=== PATIENT | male | born 1940 | race Caucasian/White ===

== ENCOUNTER 2016-12-16 00:45 | Observation (INO) | payer MEDICARE ==
[~2016-12-16] VITALS: Ht 177.8 cm; Wt 89.1 kg
[2016-12-16] VITALS (7 sets, daily range): BP systolic 119–157; BP diastolic 74–91; PULSE 50–89; RESP 16–18; O2SAT 94–98
[~2016-12-16 00:45] MED LIST: CLOP75TA28 PO; KEN1O TOP; LEVE500T3 PO; LEVOTHROID PO; SIMV20TA4 PO; TADA20TA PO; ZOLP5TAB6 PO
--- NOTE | 2016-12-16 00:54 | ED.REPORT ---
HPI-Neurologic Deficit Date of Service Dec 16, 2016 ED Provider: Jelly Bell MD Patient is a 76 year old male and a history of left frontal meningioma s/p resection in 2010, seizure disorder, hypertension, hyperlipidemia, and prior TIA 2x who presents to the ED after he developed numbness on the right side of his body this evening. The patient states that his symptoms started with right arm numbness at 11:30pm yesterday evening, lasting 12-15 minutes. His right left then became numb around midnight, also lasting for 12-15 minutes. The patient decided to seek medical care at this time, with his right arm again going numb enroute to the ED. Patient states that all of his symptoms are resolved on arrival to the ED. Patient reports a mild associated headache. The patient states that his current symptoms are similar to when he previously had a TIA in June and December. Patient denies slurred speech, facial droop, difficultly speaking, or vision changes. His observed him during these episodes and can confirm this information. Nursing Notes Stated Complaint: POSS TIA Nursing Notes Reviewed: Yes Allergies: Uncoded Allergies: POLLEN (Allergy, Unknown, 09/01/14) Scheduled ([Levothroid]) 100 MCG PO DAILY Clopidogrel (Clopidogrel) 75 Mg Tablet 75 MG PO DAILY Levetiracetam (Levetiracetam) 500 Mg Tablet 1,500 MG PO BID Simvastatin (Simvastatin) 20 Mg Tablet 20 MG PO HS Tadalafil (Cialis) 20 Mg Tablet 10 MG PO PRN As directed by physician. Triamcinolone Acet (Triamcinolone Acetonide Ointment) 1 Applic/0.25 Gm Oint 1 APPLIC TOP BID Scheduled PRN Zolpidem (Zolpidem) 5 Mg Tablet 5 MG PO HS PRN PRN For Insomnia General Time Seen by Provider: 01:04 Chief Complaint Numbness arm... (Right), Numbness leg... (Right) Hx Obtained From: Patient Arrived By: Walk-in Sudden in Onset?: No Onset Occurred: 1 - 4 hours ago Symptom Duration: Intermittent Severity: Current: No pain currently Severity: Maximum: No pain Recent Healthcare: No recent doctor visit, No recent hospitalization Similar Sx Previous: Yes Past Medical History Past Medical History Notes: PCP: Dr. Durbin Past Medical History Hypothyroidism Prior TIA in Jun 2016 and January 2016 Left frontal meningioma s/p removal and radiation therapy in 2011 Reports: Hyperlipidemia, Hypertension Reports: Seizure disorder Past Surgical History Left knee repair 2000 Left frontal meningioma removal 2011 Smoking History Never Smoker Social History Alcohol Use: "Social" Other Social History: Good social support, , Local resident Ambulatory Status Independent Review of Systems Eyes: Denies: Blurred bilateral, Visual loss bilateral Neurologic: Reports: Headache, Numbness, Denies: Slurred speech, Unable to speak, Vision change Complete sys rev & neg: except as marked. Physical Exam Initial Vital Signs Vital Signs (First) Date Time Temp Pulse Resp B/P Pulse Ox O2 Delivery O2 Flow Rate FiO2 12/16/16 00:54 36.1 60 17 157/91 98 Room Air Initial VS: Reviewed ENT: Conjunctiva normal, No scleral icterus Neck: Supple, Full range of motion Abdomen / GI: Soft, Non-tender, No distention Extremities: Vascular intact, Neuro intact, No swelling Skin: Warm, Dry, No cyanosis Psychiatric: Mood/affect normal, Behavior normal, Normal thought content General/Constitutional: Awake, Alert, No acute distress Head / Eyes: Normocephalic, PERRL, EOMI Respiratory / Chest: Breath sounds NL, Breath sounds = bilat, No respiratory distress, No rales, No rhonchi, No wheezing Cardiovascular: Heart rate NL, Regular rhythm, Heart sounds NL, No murmurs Neurologic: Oriented X3, Speech NL, No motor deficits, No sensory deficits, CN II - XII intact Focal Weakness: Negative: Pronator drift L, Pronator drift R Cerebellar Dysfunction: Negative: Finger-nose abnl, Heel-oro abnl Interpretation & Diagnostics Lab Results Interpretation Result Diagram: 12/16/16 0109 12/16/16 010 Test 12/16/16 01:09 White Blood Count 6.3th/mm3 (3.8-10.1) Red Blood Count 4.49mil/mm3 (4.40-5.80) Hemoglobin 15.1g/dL (13.8-17.2) Hematocrit 41.7% (41.0-50.0) Mean Corpuscular Volume 92.9fL (81-100) Mean Corpuscular Hemoglobin 33.6pg (27.0-35.0) Mean Corpuscular Hemoglobin Concent 36.2% (32.0-37.0) Red Cell Distribution Width 11.9% (12.3-15.4) Platelet Count 123bil/L (150-400) Neutrophils (%) (Auto) 65.9% (40-74) Lymphocytes (%) (Auto) 20.4% (14-46) Monocytes (%) (Auto) 12.0% (4-12) Eosinophils (%) (Auto) 1.3% (0-5) Basophils (%) (Auto) 0.2% (0-3) Prothrombin Time 11.1sec (8.1-12.5) Prothromb Time International Ratio 1.04ratio Activated Partial Thromboplast Time 26.9sec (22.8-33.0) Sodium Level 141mEq/L (134-144) Potassium Level 3.7mEq/L (3.5-5.2) Chloride Level 104mEq/L (97-108) Carbon Dioxide Level 23mmol/L (18-29) Blood Urea Nitrogen 15mg/dL (8-27) Creatinine 0.85mg/dL (0.76-1.27) Estimat Glomerular Filtration Rate 94mL/min (>59) Glucose Level 104mg/dL (60-99) Calcium Level 9.0mg/dL (8.5-10.1) Total Bilirubin 0.6mg/dL (0.0-1.2) Aspartate Amino Transf (AST/SGOT) 21U/L (0-50) Alanine Aminotransferase (ALT/SGPT) 15U/L (0-44) Alkaline Phosphatase 66U/L (25-160) Troponin T 0.010ug/L (0.0-0.011) Total Protein 6.7g/dL (6.4-8.4) Albumin 4.4g/dL (3.4-5.0) Hold Smiley Top Tube Received (Received) ECG Interpretation ECG Interpretation: Sinus bradycardia, Rate [address] elevation T wave inversions in lead 3 and AVR unchanged from prior Time: 01:30 Interpreted by: ED physician CT Head Interpretation CONCLUSION: Cortical atrophy, 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 Critical Test acknowledged at 12/16/2016 1:18:09 AM PDT. Verbal report given to Dr. Bell at 12/16/2016 1:18:11 AM PDT. She states that the patient had a meningioma resected and was treated with radiation therapy. The patient's symptoms have since resolved. She states there is a previous study for comparison minimal try to get it to me for comparison. I would be concerned that the meningioma has recurred. Low attenuation within the left brain though could represent some vasogenic edema or could be the result of the previous radiation therapy. Study: Head CT no contrast Interpretation / Wet Read by: Interpret - Radiologist, Discussed w radiologist Re-Eval/Medical Decision Med Decision/Clinical Course 76-year-old male with past medical history of meningioma, hypertension, high cholesterol, TIA here with numbness to right upper and right lower extremity 2 which is now resolved. Differential diagnosis includes but is not limited to ischemic versus hemorrhagic stroke versus recurrent meningioma versus electrolyte abnormality. CBC and CMP are unremarkable. EKG is unremarkable. CT head shows recurrence of meningioma which is unchanged from CT scan in June. Patient has been admitted by the hospitalist for TIA workup. He is aware and amenable to plan. Source of Hx: Old records Re-Evaluation/Progress #1: Time of Eval: 01:38 Patient Status: Condition resolved Re-Evaluation/Progress Note: Rechecked the patient. Discussed his CT findings with the patient. It appears as if there is a recurrance of his meningioma on CT scan. He is not aware of this, but someone did review his imaging from June of this year. The patient states that he is followed by a neurologist in [place], but was previously seen at [facility]. Patient will be admitted to the hospital for further care. Patient understands and agrees with this plan. All questions were addressed. Re-Evaluation/Progress #2: Time of Eval: 03:02 Re-Evaluation/Progress Note: Rechecked the patient. He was informed that he has been accepted for admission to the hospital. Consultation : Referral / Consult Name: Maria Guadalupe Blanca DO Consulted With: Hospitalist Call Returned at: 02:59 Admitting Representative: Will see patient, Agrees with eval, Agrees with plan, Accepts admit Note: Spoke with Dr. Montgomery, hospitalist, who agrees to accept admit. Counseled Regarding: Diagnosis, Lab results, Need for admission Discharge & Departure Impression: Primary Impression: TIA (transient ischemic attack) Transient cerebral ischemia type: unspecified Qualified Code: G45.9 - Transient cerebral ischemic attack, unspecified Disposition: ADMITTED TO HOSPITAL Discharge Condition All VS Reviewed: Yes Condition: Stable Referrals: Bianka Durbin MD (PCP) Jamesibnohemy Attestation Portions of this note were transcribed by Elli Goodrich. I, Dr. Bell personally performed the history, physical exam and medical decision-making; I reviewed and confirmed the accuracy of the information in the transcribed note. Signed by: Larry Loja, 12/16/2016 0303 copies to: Bianka Durbin MD, Rebecca A MD Dec 16, 2016 00:54 Elli Goodrich Dec 16, 2016 01:12
[2016-12-16 01:26] LABS: BASOPHILS % (AUTO) 0.2 % (0-3); EOSINOPHILS % (AUTO) 1.3 % (0-5); Mean Corpuscular Hemoglobin 33.6 pg (27.0-35.0); Mean Corpuscular Volume 92.9 fL (81-100); NEUTROPHILS % (AUTO) 65.9 % (40-74); Platelet Count 123 bil/L (150-400)
[2016-12-16 01:45] LABS: INR 1.04 ratio
[2016-12-16 02:03] LABS: TROPONIN T 0.01 ug/L (0.0-0.011)
[2016-12-16] MEDS ORDERED: Polyethylene Glycol (PEG) 17 Gm Powder PO PRN (03:20)
[2016-12-16] MEDS ORDERED: hydrALAZINE 20 mg/mL Inj IVPUSH PRN (03:20)
[2016-12-16] MEDS ORDERED: Ondansetron 2 mg/mL 2 mL Inj IV PRN (03:20)
[2016-12-16] MEDS ORDERED: Ondansetron 2 mg/mL 2 mL Inj IVPUSH PRN (03:25)
[2016-12-16] MEDS ORDERED: Alum-Mag Hydrox-Simeth 30 mL Suspension PO PRN (03:25)
[2016-12-16 04:48] LABS: APPEARANCE,URINE CLEAR (CLEAR,HAZY); COLOR,URINE YELLOW (YELLOW); OCCULT BLOOD,URINE TRACE (NEGATIVE); UROBILINOGEN,URINE NORMAL (NORMAL)
--- NOTE | 2016-12-16 06:12 | PCM.HPMED ---
Subjective Date of Service Dec 16, 2016 Primary Provider: Admitting Physician: Maria Guadalupe Blanca DO Primary Care Physician: Bianka Durbin MD Attending Physician: Maria Guadalupe Blanca DO Admit Status: From the Emergency Department Chief Complaint: Right arm and leg numbness History of Present Illness: 76-year-old male with past medical history of meningioma resection, seizures, TIAs presents with an episode of right upper and lower extremity numbness. At approximately 11:30 PM on 12/15/2016 patient developed intense numbness in his right arm this sensation when he touched it was decreased and also he suddenly it was not there. This episode lasted 10-15 minutes he was able to walk downstairs in that time and talk with his . He then fell asleep and woke up an hour later with some right leg numbness. He was able to walk but was stumbling some, he was also having trouble standing. At that time patient decided it was reasonable to come to the emergency department. His brought him here in the car he had some additional right arm numbness however upon arrival he felt normal again and has not had return of this sensation. Patient reports otherwise feeling well, he has had no changes in his routine recently. He walks 3.5 miles every other day. He did notice a leg cramp on the right side a couple nights ago however this resolved and has not returned. He does report a mild headache and now however this did not start prior to his symptoms. He reports no vision changes no nausea, vomiting, fever, chills. Patient had similar events in June and January 2016. He is followed by neurologist Dr. Carr in [place]. Who he last saw after his admission in June. Patient has not been taking aspirin since last admission, he also has not had an EEG In the emergency department CT brain shows no changes from imaging done in June. Laboratory evaluation unremarkable. Review of Systems: A comprehensive review of systems was conducted with the patient and found to be negative except as above in the History of Present Illness. Allergies Uncoded Allergies: POLLEN (Allergy, Unknown, 09/01/14) Home Medications 1. Plavix 75 mg by mouth daily 2. Keppra 1500 mg by mouth twice a day 3. Tadalafil 10 mg by mouth when necessary as directed 4. Triamcinolone acetonide ointment apply topically twice a day 5. Zolpidem 5 mg by mouth daily at bedtime when necessary insomnia 6. Levothyroxine 100 g by mouth daily PMH Left frontal meningioma status post removal and radiation therapy in 2010 Seizure 2010 Atrial flutter status post ablation Hyperlipidemia Thyroid nodule with hypothyroidism related TIA June and January 2016 Surgical History Resection of left frontal meningioma 2010 Left knee repair 2000 Cardiac ablation for atrial flutter Family History Mother with cancer and CHF History of diabetes Social History Hx Alcohol Use: Yes (Martini 1-2 daily) Alcoholic Drinks Per Day: 2 Hx Substance Use: No Hx Tobacco Use: No Smoking Status: Former Smoker, Never Smoker Years of Smokin Living Arrangement: with Family Exam Vital Signs Vital Sign - Last Date Time Temp Pulse Resp B/P Pulse Ox O2 Delivery O2 Flow Rate FiO2 12/16/16 04:02 36.7 55 18 138/88 97 Room Air Exam General: No acute distress, well-developed, well-nourished, appropriately interactive HEENT: Normocephalic, atraumatic. External ears without defect. Pupils equal, round, and reactive to light and accommodation. Anicteric sclerae, moist conjunctivae, and no lid lag. Oropharynx free of erythema and cobble stoning with moist mucosa. Neck: Supple with full range of motion. No jugular venous distension. No bruits. No lymphadenopathy or thyromegaly. Cardiovascular: Regular rate and rhythm with no murmurs, rubs, or gallops appreciated Pulmonary: Clear to auscultation bilaterally with no crackles, wheezes, or rhonchi. Normal respiratory effort with no use of accessory muscles. Abdomen: Bowel tones present. Soft, nontender, nondistended. No hepatosplenomegaly or masses appreciated. Extremities: No clubbing, cyanosis, edema, or lymphadenopathy appreciated. Skin: Normal temperature, turgor, and texture; no rash, ulcers, or subcutaneous nodules appreciated. Neurological: Cranial nerves grossly intact. Normal muscle strength, tone, and bulk. No gait impairment. Patient able to ambulate independently, Psychiatric: Normal mood and affect. Alert and oriented to person, place, and time. Lab and Diagnostics Result Diagram: 12/16/1610812/16/16108 Assessment & Plan 76-year-old male with past medical history of meningioma resection, seizures, TIAs presents with an episode of right upper and lower extremity numbness that had resolved upon presentation to the emergency department. Patient has 2 similar episodes in June and January 2016 1. Possible transient ischemic attack, present on admission, resolved - Patient had right-sided upper and lower extremity numbness last known normal 11 PM 12/15/2016 - ABCD2 score predicts patient is low risk with a 2 day stroke risk of 1.0% and a 90 day stroke risk of 3.1% - CT head shows evidence of left frontal meningioma resection, radiation, and regrowth no change since June 2016, pending final read - Patient had no symptoms of dysphasia or dysarthria, nursing swallow eval past - Echocardiogram ordered - Hemoglobin A1c, fasting lipid profile ordered - Medical management with Plavix, simvastatin --- initiating ASA 325mg daily in addition to plavix - MR stroke protocol ordered for the morning - Nursing stroke education - Monitor patient on telemetry - Allow for permissive hypertension - Physical therapy evaluation 2. History of seizures, present on admission, chronic - Continue Keppra - Recommend day hospitalist contact neurologist Dr. Carr in [place] for close follow-up and possible recommendations 3. Hypothyroidism, present on admission, chronic - Continue levothyroxine 100 g by mouth daily Acetaminophen for mild pain when necessary. Bowel regimen Senna and MiraLAX PRN. Zofran when necessary for nausea and vomiting. DVT prophylaxis with sub cutaneous Lovenox Patient is admitted under observation status with expected length of stay less than 2 midnights due to severity of presenting symptoms, risk of adverse event, and complexity of treatment plan. Pain Evaluation: Adequate Pain Control GI Prophylaxis: Not indicated VTE Prophylaxis: Sub-Q Enoxaparin Resuscitation Status: CPR: Attempt Resuscitation Attending Statement The patient was seen and examined together with house staff on 12/16/16 and I agree with the history, exam and plan as outlined in the note above. Roma Banerjee DO Dec 16, 2016 04:06 Maria Guadalupe Blanca DO Dec 16, 2016 06:31
--- NOTE | 2016-12-16 06:17 | NUR ---
Admit Pt arrived on unit #[id number] via stretcher from ED with all personal belongings. Able to transfer self to bed. VSS. Neuro's WNL. Oriented to unit, hospital policy and call light. Bed locked, low position. Allergy sticker placed on armband. Home medication list completed per patient interview. Slip resistant socks and SBA for safety. Call light within reach, using appropriately. Pleasant and cooperative with care.
[2016-12-16] MEDS ORDERED: levETIRAcetam 500 mg Tablet PO SCH (08:30)
--- NOTE | 2016-12-16 09:58 | DRSVH ---
PROCEDURE: CT BRAIN (TPA) ([id number]) INDICATIONS: slurred speech TECHNIQUE: Noncontrast 4.5 mm thick angled axial sections acquired from the foramen magnum to the vertex, with c oronal reformats. COMPARISON: [facility], CT, BRAIN W CONTRAST, 08/07/2011, 17:00. [facility] , CT, BRAIN W/O CONTRAST, 04/09/2012, 13:36. [facility], MR, BRAIN W&W/O CONTRAST, 012, 15:18. [facility], CT, BRAIN (TPA), 06/26/2016, 14:14. FINDINGS: Image quality: Excellent. CSF spaces: Basal cisterns are patent. No extra-axial fluid collections. The ventricles are symmet meggan in size and shape. Brain: No intracranial bleeds. There is cerebral volume loss for age, with resultant ventricular an d sulcal prominence. There are periventricular and deep white matter chronic small vessel ischemic c hanges. There is intracranial internal carotid artery atherosclerosis. Postsurgical changes are pre sent within the left para-midline section of the vertex. In addition, within this region there is an isodense mass like focus present. It is noted in the clinical history that the patient had a meningio ma resection within this region was treated with radiation therapy in 2010. Skull and face: Calvarium and visualized facial bones appear intact, without suspicious lesions. Sinuses: Visualized sinuses and mastoids are clear. IMPRESSION: 1. No acute intracranial process. 2. Isodense focus within the left frontal para midline position at the level of the vertex as describ ed above. This is the site of previous meningioma resection. Overall appearance is suggestive of pote ntial tumor recurrence versus radiation change. MRI with and without contrast is recommended for senia tional evaluation and comparison to postoperative MRI on 04/09/12. This study fulfills neurological imaging criteria for inclusion or exclusion of acute stroke therapie s based on available published neurological guidelines. Dictated by: Myriam Teague M.D. on 12/16/2016 at 9:46 Approved by: Myriam Teague M.D. on 12/16/2016 at 9:56
--- NOTE | 2016-12-16 11:23 | NUR ---
Evaluation completed. Please go to "Notes" then click on "Assessments and Notes" (bottom left corner of screen). Then select appropriate discipline tab on top of screen.
--- NOTE | 2016-12-16 13:29 | NUR ---
Pt. screened. Discussed with pt. his current functional state and observed tasks. No charge. DC OT.
--- NOTE | 2016-12-16 14:30 | DRSVH ---
PROCEDURE: MRI STROKE PROTOCOL ([id number]) Pre- and post-contrast brain MRI, non-contrast brain MR angiogram, pre- and postcontrast neck MR nelson ogram INDICATIONS: TIA, meningioma resected 2010 TECHNIQUE: Brain: Noncontrast axial T1 spin echo, axial T2 fast spin echo, sagittal and axial FLAIR, coronal T2 fast spin echo, axial gradient echo, axial diffusion and ADC through the brain. After the administr ation of contrast, axial 3D VIBE of the cranial vasculature and brain. Brain MRA: Non-contrast 3-D time of flight MR angiogram, with multiple chcvtin-hcbetgedb-ixwmiagxif (MIP) reformats performed. Neck MRA: Axial and sagittal TruFISP through the neck. Coronal dynamic MR angiogram during administ ration of contrast in the arterial and venous phases, with 3-dimenstional pjefvwc-mkkpyoqoj-yqlxmvhyi n (MIP) reformats constructed from subtraction images. COMPARISON: [facility], CT, BRAIN W/O CONTRAST, 07/22/2011, 23:08. [facility], B[facility]AST, 08/07/2011, 17:00. [facility], CT, BRAIN W/O CONTRAST, 04/09/20 12, 13:36. [facility], MR, BRAIN W&W/O CONTRAST, 04/09/2012, 15:18. FINDINGS: Image quality: Excellent. BRAIN: CSF spaces: Ventricles are normal in size and shape. Basal cisterns are patent. No extra-axial flu id collections. Brain: Left parietal parafalcine enhancing extra-axial mass is again noted. The mass has increased in size in the interval since prior MRI obtained 04/09/2012 measuring approximately 5.6 x 2.8 x 2.5 cm. T he lesion invades the superior sagittal sinus and crosses midline to the right parasagittal parietal convexity. Lesion has mass effect on the left parietal lobe. There is increased T2 signal within the left frontal and parietal convexity subcortical white matter compatible with vasogenic edema. Scatter ed punctate foci of increased T2 signal noted in the periventricular and subcortical white matter tra cts compatible with mild chronic microvascular ischemic changes. There is absence of flow void and e nhancement in the superior sagittal sinus anterior to the parietal extra-axial mass. Del Valle-white matte r interface is normal. Diffusion weighted images show no acute ischemic insults. Brainstem appears normal. Normal central cerebral arterial flow voids are present. Skull and face: Postsurgical changes compatible with left frontal-parietal craniotomy for meningioma resection are again noted. Calvarial marrow signal is normal. Orbits appear normal. Sinuses: Mucous retention cysts versus polyps in the maxillary sinuses are stable compared to prior e xamination. mastoids are clear. BRAIN MR ANGIOGRAM: Anterior circulation: Intracranial internal carotid arteries are normal in size and enhancement. Th e flow within the paired anterior cerebral arteries is normal and symmetric. The flow within the mid dle cerebral arteries is normal and symmetric. The anterior communicating artery is seen. No stenos es, occlusions, or aneurysms. Posterior circulation: The visualized portions of the vertebral arteries demonstrate normal caliber, and join to form a normal appearing basilar artery. The flow within the posterior cerebral arteries is normal and symmetric. No stenoses, occlusions, or aneurysms. NECK MR ANGIOGRAM: Carotids: Great vessels demonstrate a conventional anatomy as they arise from the aortic arch. The origins of the common carotid arteries appear patent. The calibers and courses of both common caroti d arteries are normal. The bifurcation regions appear normal bilaterally. The internal carotid mg rachell demonstrate normal course and caliber. Posterior circulation: The origins of the vertebral arteries appear patent. More superior portions of both vertebral arteries demonstrate normal course and caliber, and join to form a normal appearing basilar artery. Miscellaneous: Subclavian arteries appear patent. Pre-contrast images through the neck show no soft tissue abnormalities. IMPRESSION: BRAIN MRI: 1. No areas of acute infarction. 2. Left parietal parafalcine enhancing extra-axial mass has increased in size. The lesion now invades the superior sagittal sinus and extends across midline to the right parafalcine parietal convexity. Lesion has imaging characteristics compatible with residual/recurrent meningioma. 3. Left parafalcine meningioma having a mass effect on adjacent left frontal parenchyma with associat ed left frontal and left parietal vasogenic edema. 4. Absence of flow-void and enhancement in the superior sagittal sinus anterior to left parafalcine m eningioma compatible with occlusion. BRAIN MR ANGIOGRAM: Negative MR angiogram head. NECK MR ANGIOGRAM: Negative MR angiogram neck. Findings discussed with Janie Zhong medical resident covering for Roma Banerjee on 12/16/16 at 1427 hr s. The estimate of stenosis included in the report of the imaging study was calculated using the NASCET method Dictated by: Sally Lujan MD, PhD on 12/16/2016 at 14:07 Approved by: Sally Lujan MD, PhD on 12/16/2016 at 14:29
--- NOTE | 2016-12-16 15:48 | PCM.DIMED ---
Venecia Cramer DO 12/16/16 1548: Discharge Instructions Date of Service Dec 16, 2016 Dates of Hospitalization Dec 16, 2016 at 02:42 Discharge Diagnosis Discharge Diagnosis Meningioma recurrence. History of seizures, present on admission, chronic Hypothyroidism, present on admission, chronic Test Results BRAIN: CSF spaces: Ventricles are normal in size and shape. Basal cisterns are patent. No extra-axial fluid collections. Brain: Left parietal parafalcine enhancing extra-axial mass is again noted. The mass has increased in size in the interval since prior MRI obtained 04/09/2012 measuring approximately 5.6 x 2.8 x 2.5 cm. The lesion invades the superior sagittal sinus and crosses midline to the right parasagittal parietal convexity. Lesion has mass effect on the left parietal lobe. There is increased T2 signal within the left frontal and parietal convexity subcortical white matter compatible with vasogenic edema. Scattered punctate foci of increased T2 signal noted in the periventricular and subcortical white matter tracts compatible with mild chronic microvascular ischemic changes. There is absence of flow void and enhancement in the superior sagittal sinus anterior to the parietal extra-axial mass. [place] Valle-white matter interface is normal. Diffusion weighted images show no acute ischemic insults. Brainstem appears normal. Normal central cerebral arterial flow voids are present. Skull and face: Postsurgical changes compatible with left frontal-parietal craniotomy for meningioma resection are again noted. Calvarial marrow signal is normal. Orbits appear normal. Sinuses: Mucous retention cysts versus polyps in the maxillary sinuses are stable compared to prior examination. mastoids are clear. BRAIN MRI: 1. No areas of acute infarction. 2. Left parietal parafalcine enhancing extra-axial mass has increased in size. The lesion now invades the superior sagittal sinus and extends across midline to the right parafalcine parietal convexity. Lesion has imaging characteristics compatible with residual/recurrent meningioma. 3. Left parafalcine meningioma having a mass effect on adjacent left frontal parenchyma with associated left frontal and left parietal vasogenic edema. 4. Absence of flow-void and enhancement in the superior sagittal sinus anterior to left parafalcine meningioma compatible with occlusion. BRAIN MR ANGIOGRAM: Negative MR angiogram head. NECK MR ANGIOGRAM: Negative MR angiogram neck. Diet No restrictions Activity Limited until seen by PCP Call your provider Weakness (unilateral), Other (Worsening or changing symptoms) Patient Instructions Please follow up with your PCP early this week. You will need a referral to a neurosurgeon as [facility]. Your PCP can do this referral. I have attached the pertinent results of your MRI so your PCP can be aware of the findings. Your case as discussed with the neurologist on at [facility] and she stated that you will need surgery but within the next month. It is not emergent. If you develop seizures through your Keppra please immediately come into the ED. If you notice a change in your weakness or numbness or worsening symptoms please come into the ED. Follow-up Provider: Bianka Durbin MD Follow-up with PCP in: 1 week Diaz Evans MD 12/16/16 2331: Discharge Instructions Attending's Statement The patient was seen and examined together with Dr. Cramer on 12/16 and I agree with the history, exam and plan as outlined in the note above Venecia Cramer DO Dec 16, 2016 15:48 Diaz Evans MD Dec 16, 2016 23:31
--- NOTE | 2016-12-16 17:11 | NUR ---
Discharge Pt d/c home with at 1650, ambulated off unit by primary RN. Pt denied pain. IV d/c prior to leaving. Discharge info discussed with pt and . Pt denied having questions. All personal belongings left with pt. VSS.
--- NOTE | 2016-12-16 19:04 | PCM.DC.MED ---
Discharge Summary Date of Service Dec 16, 2016 Dates of Hospitalization Date of Hospital Admission Dec 16, 2016 at 02:42 Date of Discharge: Dec 16, 2016 Providers: Admitting Physician: Maria Guadalupe Blanca DO Primary Care Physician: Bianka Durbin MD Attending Physician: Maria Guadalupe Blanca DO Diagnosis at Time of Discharge Diagnosis at Time of Discharge Meningioma recurrence. History of seizures, present on admission, chronic Hypothyroidism, present on admission, chronic Procedures XRay, CTs & MRIs PROCEDURE: MRI STROKE PROTOCOL ([id number]) Pre- and post-contrast brain MRI, non-contrast brain MR angiogram, pre- and postcontrast neck MR angiogram IMPRESSION: BRAIN MRI: 1. No areas of acute infarction. 2. Left parietal parafalcine enhancing extra-axial mass has increased in size. The lesion now invades the superior sagittal sinus and extends across midline to the right parafalcine parietal convexity. Lesion has imaging characteristics compatible with residual/recurrent meningioma. 3. Left parafalcine meningioma having a mass effect on adjacent left frontal parenchyma with associated left frontal and left parietal vasogenic edema. 4. Absence of flow-void and enhancement in the superior sagittal sinus anterior to left parafalcine meningioma compatible with occlusion. BRAIN MR ANGIOGRAM: Negative MR angiogram head. NECK MR ANGIOGRAM: Negative MR angiogram neck. Findings discussed with Janie Zhong medical technologist prn covering for Roma Banerjee on 12/16/16 at 1427 hrs. The estimate of stenosis included in the report of the imaging study was calculated using the NASCET method Dictated by: Sally Lujan MD, PhD on 12/16/2016 at 14:07 Approved by: Sally Lujan MD, PhD on 12/16/2016 at 14:29 PROCEDURE: CT BRAIN (TPA) ([id number]) IMPRESSION: 1. No acute intracranial process. 2. Isodense focus within the left frontal para midline position at the level of the vertex as described above. This is the site of previous meningioma resection. Overall appearance is suggestive of potential tumor recurrence versus radiation change. MRI with and without contrast is recommended for additional evaluation and comparison to postoperative MRI on 04/09/12. This study fulfills neurological imaging criteria for inclusion or exclusion of acute stroke therapies based on available published neurological guidelines. Dictated by: Myriam Teague M.D. on 12/16/2016 at 9:[address] Banerjee's H and P: "76-year-old male with past medical history of meningioma resection, seizures, TIAs presents with an episode of right upper and lower extremity numbness. At approximately 11:30 PM on 12/15/2016 patient developed intense numbness in his right arm this sensation when he touched it was decreased and also he suddenly it was not there. This episode lasted 10-15 minutes he was able to walk downstairs in that time and talk with his . He then fell asleep and woke up an hour later with some right leg numbness. He was able to walk but was stumbling some, he was also having trouble standing. At that time patient decided it was reasonable to come to the emergency department. His brought him here in the car he had some additional right arm numbness however upon arrival he felt normal again and has not had return of this sensation. Patient reports otherwise feeling well, he has had no changes in his routine recently. He walks 3.5 miles every other day. He did notice a leg cramp on the right side a couple nights ago however this resolved and has not returned. He does report a mild headache and now however this did not start prior to his symptoms. He reports no vision changes no nausea, vomiting, fever, chills. Patient had similar events in June and January 2016. He is followed by neurologist Dr. Carr in [place]. Who he last saw after his admission in June. Patient has not been taking aspirin since last admission, he also has not had an EEG In the emergency department CT brain shows no changes from imaging done in June. Laboratory evaluation unremarkable." Hospital Course 76-year-old male with past medical history of meningioma resection, seizures, TIAs presents with an episode of right upper and lower extremity numbness that had resolved upon presentation to the emergency department. Patient has 2 similar episodes in June and January 2016 1. Meningioma recurrence, present on admission, chronic - Patient had right-sided upper and lower extremity numbness last known normal 11 PM 12/15/2016 - MRI showed evidence of recurrence of meningioma with mass effect. Discussed case with [facility] neurology who reviewed imaging. Per their recommendation the patient does need to proceed to surgery but within in the next 3-4 weeks and it can be done outpatient. There is no indication for emergent surgery as the patient has not had seizures through his Keppra. - Patient had no symptoms of dysphasia or dysarthria, nursing swallow eval passed. - Hemoglobin A1c, fasting lipid profile ordered - Physical therapy evaluation ordered 2. History of seizures, present on admission, chronic - Continued Keppra 3. Hypothyroidism, present on admission, chronic - Continued levothyroxine 100 g by mouth daily Acetaminophen for mild pain when necessary. Bowel regimen Senna and MiraLAX PRN. Zofran when necessary for nausea and vomiting. DVT prophylaxis with sub cutaneous Lovenox Exam Vital Signs (Last) Date Time Temp Pulse Resp B/P Pulse Ox O2 Delivery O2 Flow Rate FiO2 12/16/16 16:28 36.6 64 18 131/81 97 Room Air Exam General: No acute distress, well-developed, well-nourished, appropriately interactive HEENT: Normocephalic, atraumatic. External ears without defect. Pupils equal, round, and reactive to light and accommodation. Anicteric sclerae, moist conjunctivae, and no lid lag. Oropharynx free of erythema and cobble stoning with moist mucosa. Neck: Supple with full range of motion. No jugular venous distension. No bruits. No lymphadenopathy or thyromegaly. Cardiovascular: Regular rate and rhythm with no murmurs, rubs, or gallops appreciated Pulmonary: Clear to auscultation bilaterally with no crackles, wheezes, or rhonchi. Normal respiratory effort with no use of accessory muscles. Abdomen: Bowel tones present. Soft, nontender, nondistended. No hepatosplenomegaly or masses appreciated. Extremities: No clubbing, cyanosis, edema, or lymphadenopathy appreciated. Skin: Normal temperature, turgor, and texture; no rash, ulcers, or subcutaneous nodules appreciated. Neurological: Cranial nerves grossly intact. Normal muscle strength, tone, and bulk. No gait impairment. Patient able to ambulate independently, Psychiatric: Normal mood and affect. Alert and oriented to person, place, and time. Test 12/16/16 01:09 12/16/16 04:30 White Blood Count 6.3th/mm3 (3.8-10.1) Red Blood Count 4.49mil/mm3 (4.40-5.80) Hemoglobin 15.1g/dL (13.8-17.2) Hematocrit 41.7% (41.0-50.0) Mean Corpuscular Volume 92.9fL (81-100) Mean Corpuscular Hemoglobin 33.6pg (27.0-35.0) Mean Corpuscular Hemoglobin Concent 36.2% (32.0-37.0) Red Cell Distribution Width 11.9% (12.3-15.4) Platelet Count 123bil/L (150-400) Neutrophils (%) (Auto) 65.9% (40-74) Lymphocytes (%) (Auto) 20.4% (14-46) Monocytes (%) (Auto) 12.0% (4-12) Eosinophils (%) (Auto) 1.3% (0-5) Basophils (%) (Auto) 0.2% (0-3) Prothrombin Time 11.1sec (8.1-12.5) Prothromb Time International Ratio 1.04ratio Activated Partial Thromboplast Time 26.9sec (22.8-33.0) Sodium Level 141mEq/L (134-144) Potassium Level 3.7mEq/L (3.5-5.2) Chloride Level 104mEq/L (97-108) Carbon Dioxide Level 23mmol/L (18-29) Blood Urea Nitrogen 15mg/dL (8-27) Creatinine 0.85mg/dL (0.76-1.27) Estimat Glomerular Filtration Rate 94mL/min (>59) Glucose Level 104mg/dL (60-99) Calcium Level 9.0mg/dL (8.5-10.1) Total Bilirubin 0.6mg/dL (0.0-1.2) Aspartate Amino Transf (AST/SGOT) 21U/L (0-50) Alanine Aminotransferase (ALT/SGPT) 15U/L (0-44) Alkaline Phosphatase 66U/L (25-160) Troponin T 0.010ug/L (0.0-0.011) Total Protein 6.7g/dL (6.4-8.4) Albumin 4.4g/dL (3.4-5.0) Triglycerides Level 265mg/dL (0-149) Cholesterol Level 177mg/dL (100-199) LDL Cholesterol, Calculated 85.000mg/dL (0-99) VLDL Cholesterol 53.000mg/dL HDL Cholesterol 39mg/dL (>39) Cholesterol/HDL Ratio 4.54 (0.0-4.4) Thyroid Stimulating Hormone (TSH) 4.020uIU/mL (0.450-4.500) Free Thyroxine 1.41ng/dL (0.82-1.77) Hold Smiley Top Tube Received (Received) Urine Color Yellow (YELLOW) Urine Appearance Clear (CLEAR,HAZY) Urine pH 6.0 (5.0-8.0) Urine Specific Gipsy 1.010 (1.003-1.035) Urine Protein Negativemg/dL (NEG,TRACE) Urine Glucose (UA) Negativemg/dL (NEGATIVE) Urine Ketones Negativemg/dL (NEGATIVE) Urine Occult Blood Trace (NEGATIVE) Urine Nitrite Negative (NEGATIVE) Urine Bilirubin Negative (NEGATIVE) Urine Urobilinogen Normalmg/dL (NORMAL) Urine Leukocyte Esterase Negative (NEGATIVE) Urine RBC 0-2/hpf (0-2) Urine WBC 0-5/hpf (0-5) Urine Epithelial Cells Occasional/hpf (NONE-MOD) Urine Crystals None seen (NONE SEEN) Urine Bacteria None/hpf (NONE-FEW) Urine Hyaline Casts None/lpf (NONE) Urine Granular Casts None seen (NONE SEEN) Urine Waxy Casts None seen (NONE SEEN) Urine Red Blood Cell Casts None seen (NONE SEEN) Urine White Blood Cell Casts None seen (NONE SEEN) Urine Mucus None seen (None Seen) Urine Trichomonas None seen (NONE SEEN) Urine Yeast None (NONE SEEN) Urinalysis Comment None Urine Culture Reflexed Not indicated Discharge Medications Discharge Medications ([Levothroid]) 100 MCG PO DAILY (Reported) Clopidogrel (Clopidogrel) 75 Mg Tablet 75 MG PO DAILY (Reported) Levetiracetam (Levetiracetam) 500 Mg Tablet 1,500 MG PO BID (Reported) Simvastatin (Simvastatin) 20 Mg Tablet 20 MG PO HS (Reported) Tadalafil (Cialis) 20 Mg Tablet 10 MG PO PRN (Reported) As directed by physician. Triamcinolone Acet (Triamcinolone Acetonide Ointment) 1 Applic/0.25 Gm Oint 1 APPLIC TOP BID (Reported) As needed Zolpidem (Zolpidem) 5 Mg Tablet 5 MG PO HS PRN PRN For Insomnia (Reported) Followup Plan Discharge Diet: No restrictions Discharge Activity: Limited until seen by PCP Patient Instructions Please follow up with your PCP early this week. You will need a referral to a neurosurgeon as [facility]. Your PCP can do this referral. I have attached the pertinent results of your MRI so your PCP can be aware of the findings. Your case as discussed with the neurologist on at [facility] and she stated that you will need surgery but within the next month. It is not emergent. If you develop seizures through your Keppra please immediately come into the ED. If you notice a change in your weakness or numbness or worsening symptoms please come into the ED. Follow-up Provider: Bianka Durbin MD Follow-up with PCP in: 1 week Attending Statement The patient was seen and examined together with Dr. Cramer on 12/16 and I agree with the history, exam and plan as outlined in the note above Venecia Cramer DO Dec 16, 2016 19:04 Diaz Evans MD Dec 16, 2016 23:28
== END 2016-12-16 16:54 | disposition home or self-care (01) ==
LOC: SED 00:45 → MPC 02:42
PROVIDERS: ADMIT Internal Medicine; ATTEND Internal Medicine
DX: C70.0 Malignant neoplasm of cerebral meninges (principal); R20.0 Anesthesia of skin; I48.92 Unspecified atrial flutter; E78.5 Hyperlipidemia, unspecified; E03.9 Hypothyroidism, unspecified; E04.1 Nontoxic single thyroid nodule; Z87.891 Personal history of nicotine dependence; R56.9 Unspecified convulsions; Z79.899 Other long term (current) drug therapy
CPT/HCPCS: 36415; 70450; 70549; 70553; 80053; 80061; 81000; 83036; 84439; 84443; 84484; 85025; 85610; 85730; 93005; 97161; 99285; A9585; G0378; J1650